=== PATIENT | male | born 1955 ===

== ENCOUNTER 2024-05-24 13:47 | Emergency (ER) | payer MEDICARE ==
[~2024-05-24] VITALS: Ht 182.9 cm; Wt 104.3 kg
[2024-05-24] MEDS ORDERED: TELMISARTAN40 MG PO (14:03)
[2024-05-24] MEDS ORDERED: Ketorolac Tromethamine 15mg Vial IM ONE (14:30)
[2024-05-24] MEDS ORDERED: Robaxin750 MG PO ×2 (14:41→14:49)
== END 2024-05-24 14:45 | disposition home or self-care (01) ==
LOC: ER 13:47
DX: M54.42 Lumbago with sciatica, left side (principal); I10 Essential (primary) hypertension
CPT/HCPCS: 96374; 99283-25; J1885